=== PATIENT | female | born 1960 | race Caucasian/White ===

== ENCOUNTER 2017-07-14 10:34 | Day surgery (SDC) | payer BC ==
[~2017-07-14 10:34] MED LIST: Lactated Ringers 1,000 ML IV SCH; Sodium Chloride 0.9% 10 ML Syringe FLUSH PRN; Sodium Chloride 0.9% 2.5 ML Syringe FLUSH PRN
--- NOTE | 2017-07-14 11:09 | PCM.PREANE ---
Preanesthetic Assessment - Anesthesia/Transfusion/Family Hx Anesthesia History: Prior Anesthesia Reaction Other Type of Anesthesia Reaction Comment: "mother was over sensative to anesthesia and I have problems with nausea" Family History of Anesthesia Reaction: No Transfusion History: No Prior Transfusion(s) - Review of Systems General: No Symptoms Pulmonary: No Symptoms Cardiovascular: No Symptoms Neurological: No Symptoms Other: Reports: None - Physical Assessment NPO Status Date: 07/13/17 O2 Sat by Pulse Oximetry: 95 Respiratory Rate: 16 Vital Signs: Last Vital Signs Temp 36.6 C 07/14/17 10:57 Pulse Resp 16 07/14/17 10:57 BP 131/71 07/14/17 10:57 Pulse Ox 95 07/14/17 10:57 Height: 1.65 m Weight: 95.708 kg ASA Class: 2 Mental Status: Alert & Oriented x3 Airway Class: Mallampati = 2 Dentition: Reports: Normal Dentition ROM/Head Extension: Full Lungs: Clear to Auscultation, Normal Respiratory Effort Cardiovascular: Regular Rate, Regular Rhythm - Allergies Allergies/Adverse Reactions: Allergies Allergy/AdvReac Type Severity Reaction Status Date / Time No Known Allergies Allergy Verified 07/09/17 12:18 - Acknowledgements Anesthesia Type Planned: MAC Pt an Appropriate Candidate for the Planned Anesthesia: Yes Alternatives and Risks of Anesthesia Discussed w Pt/Guardian: Yes Pt/Guardian Understands and Agrees with Anesthesia Plan: Yes PreAnesthesia Questionnaire HEENT History: Reports: Allergic Rhinitis Other HEENT History: wears glasses, contacts Cardiovascular History: Reports: Hypertension Respiratory History: Reports: None Gastrointestinal History: Reports: GERD, Hiatal Hernia, Other (See Below) Other Gastrointestinal History: dysphagia [employer] History: Reports: None Musculoskeletal History: Reports: Fracture Other Musculoskeletal History: hx of fx shoulder Neurological History: Reports: Other (See Below) Other Neuro History: hx of motion sickness Psychiatric History: Reports: Anxiety Endocrine/Metabolic History: Reports: Obesity/BMI 30+ Hematologic History: Reports: None Immunologic History: Reports: None Oncologic (Cancer) History: Reports: None Dermatologic History: Reports: None - Past Surgical History HEENT Surgical History: Reports: Tonsillectomy GI Surgical History: Reports: None Female Surgical History: Reports: Other (See Below) Other Female Surgeries/Procedures: removal of Ovarian cyst Musculoskeletal Surgical History: Reports: Other (See Below) Other Musculoskeletal Surgeries/Procedures:: removal of fatty tumor on wrist - SUBSTANCE USE Smoking Status *Q: Never Smoker Tobacco Use Within Last Twelve Months: No Recreational Drug Use History: No - HOME MEDS Home Medications: Home Meds Fish Oil/[place]-3 Fatty Acids [Fish Oil 1,000 MG] 1 tab PO DAILY 05/20/16 [ History] Multivitamin [Multivitamins] 1 tab PO DAILY 05/20/16 [History] Omeprazole Magnesium [Prilosec Otc] 20 mg PO DAILY 05/20/16 [History] Venlafaxine [Effexor XR] 150 mg PO DAILY 05/20/16 [History] Calcium Carbonate [Calcium] 500 mg PO DAILY 07/09/17 [History] Losartan Potassium 50 mg PO BEDTIME 07/09/17 [History] - CURRENT (IN HOUSE) MEDS Current Meds: Current Medications Lactated Ringer's (Ringers, Lactated) 1,000 mls @ 125 mls/hr IV ASDIRECTED MEGHAN Last Admin: 07/14/17 10:58 Dose: 125 mls/hr Sodium Chloride (Saline Flush) 10 ml FLUSH ASDIRECTED PRN PRN Reason: Keep Vein Open Sodium Chloride (Saline Flush) 2.5 ml FLUSH ASDIRECTED PRN PRN Reason: Keep Vein Open
[2017-07-14] MEDS ORDERED: Propofol 200 MG/20 ML SDV ONE (11:28)
--- NOTE | 2017-07-14 11:39 | PCM.OPNOTE ---
- General Post-Op/Procedure Note Date of Surgery/Procedure: 07/14/17 Operative Procedure(s): Diagnostic EGD Findings: Small hiatal hernia, gastric polyps, mild gastritis Pre Op Diagnosis: Dysphagia Post-Op Diagnosis: Hiatal hernia, gastric polyp, and mild gastritis Anesthesia Technique: [facility] [place] Primary Surgeon: Carey Wood Condition: Good
[2017-07-14] MEDS ORDERED: Acetaminophen/HYDROcodone 325-5 MG Tab PO PRN (11:54)
[2017-07-14] MEDS ORDERED: diphenhydrAMINE 50 MG/ML SDV IVPUSH PRN (11:56)
--- NOTE | 2017-07-14 11:57 | PCM.POSTAN ---
POST ANESTHESIA ASSESSMENT - MENTAL STATUS Mental Status: Alert, Oriented - RESPIRATORY Respiratory Status: Respiratory Rate WNL, Airway Patent, O2 Saturation Stable - CARDIOVASCULAR CV Status: Pulse Rate WNL, Blood Pressure Stable - GASTROINTESTINAL GI Status: No Symptoms - POST OP HYDRATION Hydration Status: Adequate & Stable
--- NOTE | 2017-07-14 11:57 | PCM48HPAN ---
Post Anesthesia Note - EVALUATION WITHIN 48HRS OF ANESTHETIC Vital Signs in Normal Range: Yes Patient Participated in Evaluation: Yes Respiratory Function Stable: Yes Airway Patent: Yes Cardiovascular Function Stable: Yes Hydration Status Stable: Yes Pain Control Satisfactory: Yes Nausea and Vomiting Control Satisfactory: Yes Mental Status Recovered: Yes
[2017-07-14 12:22] VITALS: BP 115/59
--- NOTE | 2017-07-14 17:45 | OR ---
SURGEON: JENN MTZ MD DATE OF PROCEDURE: 07/14/2017 PREOPERATIVE DIAGNOSIS: Dysphagia. POSTOPERATIVE DIAGNOSES: 1. Hiatal hernia. 2. Gastric polyp. 3. Mild gastritis. PROCEDURE PERFORMED: Diagnostic esophagogastroduodenoscopy. INSTRUMENT USED: Olympus endoscope. EXTENT OF EXAM: To the second portion of the duodenum. PREPARATION: Good. LIMITATIONS: None. INDICATIONS FOR EXAMINATION: The patient is a 57-year-old female with progressive dysphagia. She underwent a barium swallow study that showed a small hiatal hernia and mild presbyesophagus. Decision was made to perform a diagnostic EGD. We discussed the procedure, expected perioperative course, and risks including bleeding and perforation. The patient verbalized understanding and wishes to proceed. PROCEDURE IN DETAIL: The patient was brought into the endoscopy suite and placed in a beach-chair position. A time-out was completed verifying the patient's name, age, date of , allergies, and procedure to be performed. Monitored anesthesia care was induced and a bite-block was placed in the patient's mouth. Continuous oxygen was provided via nasal cannula. After adequate sedation was achieved, a well- lubricated endoscope was placed into the patient's mouth and advanced under direct visualization to the level of the second portion of duodenum. This appeared normal and a photograph was taken. The scope was then slowly pulled back while examining the color, texture, anatomy, and integrity of the mucosa of the upper GI tract from the duodenum to the proximal esophagus. The remainder of the duodenum appeared normal. A photograph was taken of the pylorus as well as the esophageal hiatus. The pylorus appeared normal, however, there was a small hiatal hernia noted at the esophageal gastric junction. The gastric mucosa was notable for some mild erythema along the distal half of the stomach. Biopsies were taken of the gastric body, antrum, and fundus and sent to pathology. The patient also had several small hyperplastic appearing gastric polyps. One of these was taken and sent to pathology. The scope was then brought into the distal esophagus and a photograph was taken at the hiatal hernia. There was no evidence of esophagitis or ulceration. The remainder of the proximal esophagus appeared normal. The scope was removed and the procedure was terminated. The patient tolerated the procedure well and was taken to PACU in stable condition. ENDOSCOPIC DIAGNOSES: 1. Hiatal hernia. 2. Gastric polyp. 3. Mild gastritis. RECOMMENDATIONS: Continue omeprazole and we will see the patient back in clinic in 2 weeks. NEFTALY BURNS /[id number]
== END 2017-07-14 12:25 | disposition home or self-care (01) ==
LOC: MW.SDS 10:34
PROVIDERS: ATTEND Surgery
DX: K29.50 Unspecified chronic gastritis without bleeding (principal); K31.7 Polyp of stomach and duodenum; K44.9 Diaphragmatic hernia without obstruction or gangrene; F41.9 Anxiety disorder, unspecified; K21.9 Gastro-esophageal reflux disease without esophagitis; I10 Essential (primary) hypertension; E66.9 Obesity, unspecified; Z79.899 Other long term (current) drug therapy; Z98.890 Other specified postprocedural states; Z90.89 Acquired absence of other organs; Z68.35 Body mass index [BMI] 35.0-35.9, adult
CPT/HCPCS: 43239; J7120; 88305; 88312; J2704